=== PATIENT | male | born 1995 | race Hispanic/Latino ===

== ENCOUNTER 2023-04-23 09:38 | Day surgery (SDC) | payer SELFPAY ==
[2023-04-23] MEDS ORDERED: Midazolam HCl 2 mg/2 ml Vial ONE (11:28)
[2023-04-23] MEDS ORDERED: SUGAMMADEX SODIUM 200 MG/2 ML VIAL ONE (11:28)
[2023-04-23] MEDS ORDERED: fentaNYL PF 100 MCG/2 ML SYRINGE ONE ×2 (11:28→15:01)
[2023-04-23] MEDS ORDERED: Bupivacaine 0.25% HCL 30 ML VIAL ONE (12:48)
[2023-04-23] MEDS ORDERED: EPINEPHrine 1 MG/ML VIAL ONE (12:48)
[2023-04-23] MEDS ORDERED: Sodium Chloride 0.9% 100 ML ONE (13:02)
[2023-04-23] MEDS ORDERED: CEFAZOLIN 2 GM VIAL ONE (13:02)
[2023-04-23] MEDS ORDERED: Rocuronium Bromide 10 MG/ML (10ML VIAL) ONE (13:18)
[2023-04-23] MEDS ORDERED: PROPOFOL 200 MG/20 ML VIAL ONE (13:18)
[2023-04-23] MEDS ORDERED: Succinylcholine 200 MG/10 ml SYRINGE FS ONE (13:18)
[2023-04-23] MEDS ORDERED: Ondansetron PF 4 MG/2 ML Vial ONE (13:18)
[2023-04-23] MEDS ORDERED: Lidocaine 1% PF 5 ML VIAL ONE (13:18)
[2023-04-23] MEDS ORDERED: Acetaminophen/Codeine 30-300mg Tablet PO PRN (14:41)
[2023-04-23] MEDS ORDERED: HYDROcodone/Acetaminophen 5/325 mg Tablet ONE (15:36)
== END 2023-04-23 16:25 | disposition home or self-care (01) ==
LOC: SDC 09:38
PROVIDERS: ATTEND Student in an Organized Health Care Education/Training Program
PROC: 0DTJ4ZZ Resection of Appendix, Percutaneous Endoscopic Approach (ICD-10-PCS; principal; 2023-04-23)
DX: K35.80 Unspecified acute appendicitis (principal)
CPT/HCPCS: 88304; A4314; A4649; C1776; C1889; J0171; J2250; J2405; J2704; J3490; S0020

== ENCOUNTER 2023-05-06 22:31 | Emergency (ER) | payer BC, SELFPAY | END 2023-05-07 00:34 | disposition home or self-care (01) | LOC: ERS 22:31 | DX: T81.31XA Disruption of external operation (surgical) wound, not elsewhere classified, initial encounter (principal); F17.210 Nicotine dependence, cigarettes, uncomplicated | CPT/HCPCS: 99283 ==